=== PATIENT | female | born 1955 | race Caucasian/White ===

== ENCOUNTER 2023-12-26 19:20 | Emergency (ER) | payer MEDICARE, OTHER ==
[2023-12-26 19:46] LABS: BASOPHILS # (AUTO) 0.1 10^3/uL (0.0-0.1); BASOPHILS % (AUTO) 1.4 %; EOSINOPHILS # (AUTO) 0.1 10^3/uL (0.0-0.7); EOSINOPHILS % (AUTO) 2.1 %; HCT - HEMATOCRIT 40.6 % (37.0-47.0); HGB - HEMOGLOBIN 13.9 g/dL (12.0-16.0); LYMPHOCYTES # (AUTO) 1.7 10^3/uL (1.5-3.5); LYMPHOCYTES % (AUTO) 40.6 %; MEAN CORPUSCULAR HGB CONC 34.2 g/dL (32.0-36.0); MEAN CORPUSCULAR VOLUME 93.3 fL (81.0-99.0); MEAN PLATELET VOLUME 9.6 fL (7.9-10.8); MONOCYTES # (AUTO) 0.5 10^3/uL (0.0-1.0); MONOCYTES % (AUTO) 10.8 %; NEUTROPHILS # (AUTO) 1.9 10^3/uL (1.5-6.6); NEUTROPHILS % (AUTO) 44.9 %; PLT - PLATELET COUNT 262 10^3/uL (130-450); RED BLOOD COUNT 4.35 10^6/uL (4.20-5.40); RED CELL DISTRIBUTION WIDTH 12.9 % (12.0-15.0); WHITE BLOOD COUNT 4.2 x10^3/uL (4.8-10.8)
[2023-12-26] MEDS: SODIUM CHLORIDE 0.9% 1,000 ML IV STA (19:46)
[2023-12-26] MEDS: PROPARACAINE 0.5% OPHTH DROPS 15 ML RIGHTEYE STA (19:56)
[2023-12-26 20:03] LABS: ALBUMIN 4.5 g/dL (3.2-5.5); ALBUMIN/GLOBULIN RATIO 1.8 (1.0-2.2); ALKALINE PHOSPHATASE 53 IU/L (42-121); ALT ALANINE AMINOTRANSFERASE 13 IU/L (10-60); AST ASPARTATE AMINOTRANSFERASE 18 IU/L (10-42); BILIRUBIN,TOTAL 0.7 mg/dL (0.2-1.0); BUN - BLOOD UREA NITROGEN 6 mg/dL (6-20); CALCIUM 9.7 mg/dL (8.5-10.3); CARBON DIOXIDE - CO2 29 mmol/L (21-32); CHLORIDE 98 mmol/L (101-111); CREATININE 0.6 mg/dL (0.6-1.3); CRP - C-REACTIVE PROTEIN < 0.5 mg/dL (<0.5); GFR - MDRD 99 (>89); GLUCOSE 93 mg/dL (74-104); LIPASE 44 U/L (11-82); POTASSIUM 3.6 mmol/L (3.5-4.5); SODIUM 134 mmol/L (135-145)
--- NOTE | 2023-12-26 20:05 | CT Report ---
PROCEDURE: Head WO INDICATIONS: headache, visual change TECHNIQUE: Noncontrast 4.5 mm thick angled axial sections acquired from the foramen magnum to the vertex. For r adiation dose reduction, the following was used: automated exposure control, adjustment of mA and/or kV according to patient size. COMPARISON: None. FINDINGS: Image quality: Excellent. CSF spaces: Basal cisterns are patent. No extra-axial fluid collections. Ventricles are normal in size and shape. Brain: No midline shift. No intracranial masses or hemorrhage. Focal region of caceres-white matter lo ss in the left occipital lobe. Skull and face: Calvarium and visualized facial bones are intact, without suspicious lesions. Sinuses: Visualized sinuses and mastoids are clear. IMPRESSION: Normal caceres-white matter loss in the left occipital lobe, without significant edema. Findings may ind icate infarct. Consider correlation with MRI. Reviewed by: Blas Jacobsen MD on 12/26/2023 8:03 PM PDT Approved by: Blas Jacobsen MD on 12/26/2023 8:03 PM PDT Station ID: [id number]
[2023-12-26] MEDS: KETOROLAC 30 MG/ML VIAL IVP STA (21:14)
[2023-12-26] MEDS: DEXAMETHASONE 10 MG/ML VIAL IV STA (21:14)
--- NOTE | 2023-12-26 21:16 | ED Physician Documentation ---
PD SANCHEZ HEENT - Stated complaint Stated Complaint: RT EYE BLURRY/RAO - Chief complaint Chief Complaint: Heent - History obtained from History obtained from: Patient - Additional information Additional information: The patient comes to the emergency department with chief complaint of acute and fairly sudden onset of what she initially thought was a right visual field loss. She states that it happened around noon and that she suddenly noticed that it seemed as though her right peripheral vision was gone. She states that she tried covering her left eye but then realized that she had vision in the right eye. She covered her right eye and felt that her left eye vision was a bit worse than the right eye, but could not really sort out exactly what was lacking. The patient states that she did not have any flashers or floaters. She developed a headache over the course of the next hour or so which was initially occipital on the left and then spread more globally. The patient states she has had mild nausea but no vomiting. No other symptoms whatsoever. No other neurologic deficits. No recent symptoms of illness. No temporal pain or headache. She is not a diabetic. No chest pain or shortness of breath. She does have a history of hypertension which is well-controlled with lisinopril and patient states she usually has blood pressures in the 120s to 130s/80s. She wears corrective lenses in the form of glasses and sees an oil mixer. Her last visit was 4 months ago when she got her current pair of glasses. No history of glaucoma. No eye pain. No redness or drainage. No contact lenses. No eye trauma. No history of ocular procedures. She otherwise feels completely well. No other complaints at this time. PD PAST MEDICAL HISTORY - Past Medical History Past Medical History: Yes Cardiovascular: Hypertension, High cholesterol Respiratory: None Neuro: None Endocrine/Autoimmune: None GI: None OVERHEAD LINE WORKER: None : None HEENT: None Musculoskeletal: None Derm: None Other Past Medical History: CHRONIC TEETH CLENCHING... - Past Surgical History Past Surgical History: Yes General: Other - Present Medications Home Medications: Ambulatory Orders Medication Instructions Recorded Confirmed Escitalopram [Lexapro] 10 mg PO DAILY 12/26/23 Ezetimibe [Zetia] 10 mg PO DAILY 12/26/23 Lisinopril [Zestril] 10 mg PO DAILY 12/26/23 busPIRone [Buspar] 5 mg PO DAILY 12/26/23 - Allergies Allergies/Adverse Reactions: Allergies Allergy/AdvReac Type Severity Reaction Status Date / Time erythromycin base AdvReac Unknown Verified 12/26/23 19:30 - Social History Does the pt smoke?: No Smoking Status: Never smoker Does the pt drink ETOH?: Yes Does the pt have substance abuse?: No - Immunizations Immunizations are current?: Yes - POLST Patient has POLST: No PD ED PE NORMAL - Vitals Vital signs reviewed: Yes - General General: Alert and oriented X 3, No acute distress, Well developed/nourished - HEENT HEENT: Atraumatic, PERRL, EOMI, Moist mucous membranes - Neck Neck: Supple, no meningeal sign - Respiratory Respiratory: No respiratory distress - Derm Derm: Normal color, Warm and dry - Extremities Extremities: No deformity - Neuro Neuro: Normal speech, Other (The patient is alert and grossly oriented. She is moving all 4 extremities without obvious deficits. No facial droop.) - Psych Psych: Normal mood, Normal affect - Free text exam Free text exam: Eye exam: Pupils are equal round and reactive to light. Extraocular muscles are intact. No conjunctival injection, tearing, or other drainage. No eyelid edema. Funduscopic examination reveals no obvious retinal abnormalities, either of the vasculature or of the structure of the retina within the limitations of a nondilated emergency department exam. Maculae are visualized bilaterally and without obvious abnormalities. Intraocular pressures with tonometry are 12 bilaterally, averaged over 10 tabs each. No proptosis. No ocular tenderness. Visual acuity with patient's corrective lenses was 20/25 on the right and 20/50 on the left. 20/20 bilaterally. Visual field testing using 1-2 fingers revealed loss of Lateral vision in the upper and lower quadrants of the right eye with intact vision in the upper and lower quadrants medially. In the left eye, visual field testing using 1-2 fingers revealed loss of vision in the medial upper and lower quadrants and the lateral upper quadrant, with intact vision in the lateral lower quadrant. With both eyes, the patient could see only fingertips in the intact areas even with 2 fingers held directly in front of her eye about 6 inches away. Results - Vitals Vitals: Vital Signs - 24 hr 12/26/23 12/26/23 19:21 21:27 Temperature 36.5 C Heart Rate 64 68 Respiratory 15 18 Rate Blood Pressure 198/89 H 168/110 H O2 Saturation 99 98 Oxygen O2 Source Room air - Labs Labs: Laboratory Tests 12/26/23 12/26/23 12/26/23 19:41 19:41 19:41 WBC 4.2 L RBC 4.35 Hgb 13.9 Hct 40.6 MCV 93.3 MCH 32.0 H MCHC 34.2 RDW 12.9 Plt Count 262 MPV 9.6 Neut # (Auto) 1.9 Lymph # (Auto) 1.7 Swift # (Auto) 0.5 Eos # (Auto) 0.1 Baso # (Auto) 0.1 Absolute Nucleated RBC 0.00 Nucleated RBC % 0.0 ESR 3 Sodium 134 L Potassium 3.6 Chloride 98 L Carbon Dioxide 29 Anion Gap 7.0 BUN 6 Creatinine 0.6 Estimated GFR (MDRD) 99 Glucose 93 Calcium 9.7 Total Bilirubin 0.7 AST 18 ALT 13 Alkaline Phosphatase 53 C-Reactive Protein < 0.5 Total Protein 7.0 Albumin 4.5 Globulin 2.5 Albumin/Globulin Ratio 1.8 Lipase 44 - Rads (name of study) CT head Relevant Findings:: Final report received, See rad report (Negative other than age-related changes.) PD Medical Decision Making - ED course Complexity details: reviewed results, re-evaluated patient, considered differential, d/w patient ED course: The patient underwent extensive workup in the emergency department including CT scan of the head, which other than age-related findings was negative. Her laboratory studies included CBC and ER abdominal panel which were unremarkable. CRP and sed rate were normal. The patient was quite hypertensive in the emergency department but had no other symptoms of hypertensive emergency. Her blood pressure did come down to 168 systolic from her initial 198, but diastolic did rise from 89-1 10. The patient did not have any further complaints. She was given a liter of fluid, and doses of Toradol and Decadron. We did not have MRI available, nor did we have ophthalmology on-call, so I spoke with Dr. Oconnor of ophthalmology at [facility]. After discussing the patient's visual field deficits, as well as all of the other details of the case, he expressed concern and felt the patient should if at all possible come to [facility] emergency department for eye exam and possibly MRI dependent on the technician inventory specialist impressions after examination. He stated his recommendation was for the patient to transfer there [facility]. I discussed all of this with the patient who was agreeable but expressed concern over the possible expense of the ambulance. I have advised the patient that she may also go by private vehicle as has said that this will be acceptable if the patient wishes to come this way. The patient regardless has agreed to transfer and understands that visual lasts is a time sensitive condition and per technician inventory specialist recommendation should be evaluated by a specialist in the field is soon as possible. The patient understands and agrees to transfer to /[facility]. Departure - Departure Disposition: 02 Transfer Acute Care Hosp Clinical Impression: Visual loss Condition: Serious Forms: PCP List
[2023-12-26 21:31] VITALS: O2SAT 98
[2023-12-26 22:22] VITALS: BP 177/85
== END 2023-12-26 22:35 | disposition short-term general hospital (02) ==
LOC: ED 19:20
DX: H54.7 Unspecified visual loss (principal); I10 Essential (primary) hypertension; E78.00 Pure hypercholesterolemia, unspecified
CPT/HCPCS: 36415; 70450; 80053; 83690; 85025; 85651; 86140; 96374; 99285; J3490